=== PATIENT | female | born 1960 | race Caucasian/White ===

== ENCOUNTER → 2017-09-30 | Outpatient (CLI) | payer OTHER ==
[~2017-09-30] MED LIST: IOHEXOL 240 MG/ML 50ML VIAL. ONE; IOHEXOL 300 MG/ML 75 ML VIAL. IV ONE
--- NOTE | 2017-09-30 16:34 | RAD ---
CT Abdomen and Pelvis With Intravenous Contrast: History: Incomplete colonoscopy. Colonic mass in descending colon. Comparison: None. Technique: After administration of oral and intravenous contrast, 75 mL Omnipaque-300, CT of the abdomen and pelvis was performed. Exposure: One or more of the following individualized dose reduction techniques were utilized for this examination: 1. Automated exposure control 2. Adjustment of the mA and/or kV according to patient size 3. Use of iterative reconstruction technique Findings: Liver, spleen, pancreas, gallbladder, and bilateral adrenal glands are unremarkable. Bilateral kidneys enhance symmetrically. Urinary bladder is unremarkable. Uterus and adnexa have unremarkable CT appearance. There does appear to be a mild amount of all wall thickening of the left colon, may be reactive given history of recent colonoscopy. There is focal, regular, circumferential soft tissue thickening involving the mid descending colon with length of the segment of about 4 cm, thought to represent the mass referenced in history. Adjacent to the mesenteric side of the colon, there are thought to be the at least 2 irregular lymph nodes which measure up to 0.7 cm in short axis; consequently, local lymph [place] metastasis is possible. No convincing retroperitoneal lymphadenopathy is seen. No other convincing area of suspected colonic mass is identified, although evaluation of this examination is not optimized to evaluate the mucosa. No suspicious osseous lesions are seen. Impression: 1. There is irregular soft tissue mural thickening of the sigmoid colon which appears circumferential. Length is about 4 cm. Findings are thought to correspond to provided history of colonic mass. 2. There are probably at least at 2 adjacent mesenteric lymph nodes to the colonic mass. Consequently, local lymph node metastasis is possible. 3. No hepatic metastases are identified. 4. There is evidence of mild mural thickening of the left colon, may be reactive given recent colonoscopy. Electronically signed by: Thien Zuniga MD (09/30/2017 4:30 PM) [place] [id number]
== END | disposition home or self-care (01) ==
LOC: CT 12:48
PROVIDERS: ATTEND Internal Medicine Gastroenterology
DX: K63.89 Other specified diseases of intestine (principal)
CPT/HCPCS: 74177; Q9966; Q9967

== ENCOUNTER → 2018-11-02 | Outpatient (CLI) | payer OTHER ==
--- NOTE | 2018-11-02 10:35 | RAD ---
Examination: CT CHEST ABD PELVIS W/CONTRAST History: Colon cancer with colon resection Comparison/Correlation: 09/30/2017 CT abdomen and pelvis with IV contrast Findings: Axial images of chest, abdomen, and pelvis were obtained following IV contrast. Sagittal and coronal reformatted images were provided. Oral contrast was administered. Left-sided infusion port catheter with tip terminating in the superior vena cava is noted. No enlarged thoracic lymph nodes. No infiltrates or pleural effusions. No pulmonary nodule or mass. Liver, spleen, pancreas, adrenal glands are normal. Gallbladder fossa is unremarkable. Kidneys are unremarkable. No ascites or pelvic free fluid. Moderate quantity of stool in colon is present. Left adnexal multi septated cystic structure is present with small amount of pelvic free fluid. This structure measures 4.5 cm x 4.5 cm x 4.3 cm longitudinal. Right adnexal follicle is present. Circumferential thickening diffusely described involving sigmoid colon is no longer evident. No bowel obstruction or extraluminal gas. Laxity of the abdominal wall at the umbilical region is evident and may relate to prior surgical intervention. No suspicious herniation of bowel. No acute bony process. Impression: Complex left adnexal multi septated cystic structure is new in the interval with minimal pelvic free fluid. Considering the patient's age, primary neoplastic process is of concern. Metastatic etiology is thought to be less likely although the patient does have a reported history of colon cancer. Further evaluation with pelvic ultrasound examination recommended. PQRS Compliance Statement: One or more of the following individualized dose reduction techniques were utilized for this examination: 1. Automated exposure control 2. Adjustment of the mA and/or kV according to patient size 3. Use of iterative reconstruction technique Electronically signed by: Vidal Lima MD (11/02/2018 10:32 AM) [facility]
== END | disposition home or self-care (01) ==
LOC: CT 08:25
PROVIDERS: ATTEND Internal Medicine Hematology & Oncology
DX: Z85.038 Personal history of other malignant neoplasm of large intestine (principal)
CPT/HCPCS: 71260; 74177; Q9967

== ENCOUNTER → 2019-02-15 | Outpatient (CLI) | payer OTHER ==
[~2019-02-15] MED LIST changes: -IOHEXOL 300 MG/ML 75 ML VIAL. IV ONE
[2019-02-15] MEDS: IOHEXOL 300 MG/ML 75 ML VIAL. IV ONE (13:26)
--- NOTE | 2019-02-16 10:36 | RAD ---
EXAM: CT OF THE CHEST, ABDOMEN AND PELVIS WITH CONTRAST. HISTORY: Colon cancer, left ovarian lesion, elevated tumor markers. TECHNIQUE: Computed tomography of the chest, abdomen and pelvis was performed after the intravenous administration of iodinated contrast. COMPARISON: 11/02/2018. FINDINGS: Bone windows reveal no suspicious lesions. A left-sided port catheter has its tip in the proximal superior vena cava. There are no pathologically enlarged mediastinal or axillary lymph nodes. There is no pleural or pericardial effusion. The heart is not enlarged. Lung windows reveal no infiltrates or suspicious nodules. There is a small hiatal hernia. The spleen, pancreas, gallbladder and kidneys are unremarkable. Tiny hypoattenuating hepatic lesions measure <5 mm and are stable. These are likely cysts. There are no clearly suspicious hepatic lesions. Bilateral multilobulated cystic and solid masses in the adnexa are consistent with Krukenberg tumors and have increased. The left measures 8.6 x 6.4 cm. The right measures 6.7 x 4.7 cm. There is trace ascites. Omental metastatic deposits have increased. One in the midline lower abdomen measures 2.6 x 1.9 cm and was not present previously. The largest in the left lower quadrant measures 3.6 x 2.1 cm. There is no small bowel obstruction or hydronephrosis. Diastases of the rectus muscles at the umbilicus contains a segment of the transverse colon. IMPRESSION: 1. 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 *One or more of the following individualized dose reduction techniques were utilized for this examination: 1. Automated exposure control. 2. Adjustment of the mA and/or kV according to patient size. 3. Use of iterative reconstruction technique. Electronically signed by: Cassidy Charles MD (02/16/2019 10:33 AM) [facility]
== END | disposition home or self-care (01) ==
LOC: CT 11:51
PROVIDERS: ATTEND Internal Medicine Hematology & Oncology
DX: C79.61 Secondary malignant neoplasm of right ovary (principal); C79.62 Secondary malignant neoplasm of left ovary; C78.6 Secondary malignant neoplasm of retroperitoneum and peritoneum; C18.6 Malignant neoplasm of descending colon; R97.0 Elevated carcinoembryonic antigen [CEA]; K44.9 Diaphragmatic hernia without obstruction or gangrene; K76.89 Other specified diseases of liver; N83.202 Unspecified ovarian cyst, left side
CPT/HCPCS: 71260; 74177; Q9967

== ENCOUNTER → 2019-04-20 | Outpatient (CLI) | payer OTHER ==
[~2019-04-20] MED LIST changes: +IOHEXOL 300 MG/ML 75 ML VIAL. IV ONE
--- NOTE | 2019-04-21 16:58 | RAD ---
EXAM: CT OF THE CHEST, ABDOMEN AND PELVIS WITH CONTRAST. HISTORY: Colon cancer. TECHNIQUE: Computed tomography of the chest, abdomen and pelvis was performed after the intravenous administration of iodinated contrast. COMPARISON: 02/15/2019. FINDINGS: Bone windows reveal no suspicious lesions. There are no pathologically enlarged mediastinal or axillary lymph nodes. There is no pleural or pericardial effusion. The heart is not enlarged. Lung windows reveal no suspicious nodules. There is atelectasis or scarring in the left lower lobe anteriorly. 2 tiny hypoattenuating foci in the left hepatic lobe are stable. The pancreas, adrenal glands, gallbladder, kidneys and spleen are unremarkable. Bilateral adnexal masses have a decreased solid enhancing component. These measure 7.1 x 5.3 cm on the right and 7.3 x 4.5 cm on the left. Previously the left mass measured 9.5 x 6.8 cm. The uterus is difficult to separate from the left mass. Peritoneal/omental nodules have decreased but not resolved. One in the midline infraumbilical region measures 1.8 x 1.2 cm as compared with 3.0 x 1.8 cm. One to the left of midline in the false pelvis measures 2.6 x 1.6 cm as compared with 4.4 x 2.7 previously. There is no ascites. There is no small bowel obstruction. There is diastases of the rectus muscles without a full-thickness hernia at the umbilicus. The diastatic region contains a portion of the transverse colon and a nonobstructed small bowel loop. IMPRESSION: 1. Response to therapy. Bilateral Krukenberg metastases have a decreased solid enhancing component. Peritoneal metastatic disease has decreased in size but not completely resolved. No new sites of disease are identified. *One or more of the following individualized dose reduction techniques were utilized for this examination: 1. Automated exposure control. 2. Adjustment of the mA and/or kV according to patient size. 3. Use of iterative reconstruction technique. Electronically signed by: Cassidy Charles MD (04/21/2019 4:55 PM) [facility]
== END | disposition home or self-care (01) ==
LOC: CT 08:11
PROVIDERS: ATTEND Internal Medicine Hematology & Oncology
DX: C18.6 Malignant neoplasm of descending colon (principal); N28.89 Other specified disorders of kidney and ureter
CPT/HCPCS: 71260; 74177; Q9967

== ENCOUNTER → 2019-10-25 | Outpatient (CLI) | payer OTHER ==
[~2019-10-25] MED LIST changes: +IOHEXOL 240 MG/ML 50ML VIAL. PO ONE
--- NOTE | 2019-10-25 16:47 | RAD ---
CT scan of the chest, abdomen and pelvis with contrast 10/25/2019 CLINICAL HISTORY: History of metastatic colon cancer. TECHNIQUE: After the oral and intravenous administration of contrast, contiguous, 3 mm axial sections were obtained through the chest, abdomen and pelvis. 75 cc of Omnipaque 300 were administered intravenously during this examination. One or more of the following individualized dose reduction techniques were utilized for this study: 1. Automated exposure control. 2. Adjustment of the mA and/or kV according to patient size. 3. Use of iterative reconstruction technique. FINDINGS: Comparison studies dated 04/20/2019. A left subclavian [id number]-p-Lthf type catheter is unchanged in position. The heart is mildly enlarged. The thoracic aorta is mildly tortuous but tapers normally. No hilar, mediastinal or axillary lymphadenopathy is seen. Subsegmental atelectasis is seen involving the left lower lobe. No area of consolidation is noted. No pneumothorax or pleural effusion is seen. No pulmonary nodule or mass is identified. The liver, spleen, pancreas, adrenal glands and kidneys are within normal limits. The abdominal aorta tapers normally. The gallbladder is not visualized consistent with a cholecystectomy. The patient is post ventral hernia repair since the previous examination. Dilated fluid-filled sigmoid colon and rectum is seen. Air distention of scattered small bowel loops is seen. There is no definite evidence of bowel obstruction. Diffuse wall thickening of the transverse colon and descending colon is seen which could a reflect a colitis. No retroperitoneal lymphadenopathy is noted. Images through the pelvis demonstrate the urinary bladder distended with urine. The patient appears to be post hysterectomy. The adnexal masses seen on the previous examination have been resected or have resolved. No adnexal mass is seen. No free fluid is noted. The omental mass lesions seen within the superior pelvis on the previous examination (which measured 1.1 to 2 cm in size) have resolved. No pelvic or inguinal lymphadenopathy is seen. The osseous structures are unchanged. IMPRESSION: 1. The adnexal mass lesions seen on the previous examination have been resected. The omental metastasis seen within the superior pelvis have resolved. No new metastasis is seen. 2. Diffuse wall thickening of the transverse and descending colon is seen which could reflect a colitis. Clinical correlation is recommended. Electronically signed by: Bradley Milton MD (10/25/2019 4:44 PM) [id number]
== END | disposition home or self-care (01) ==
LOC: CT 09:06
PROVIDERS: ATTEND Internal Medicine Hematology & Oncology
DX: C18.6 Malignant neoplasm of descending colon (principal); K52.89 Other specified noninfective gastroenteritis and colitis; Q25.46 Tortuous aortic arch
CPT/HCPCS: 71260; 74177; Q9966; Q9967